=== PATIENT | male | born 1960 | race Caucasian/White ===

== ENCOUNTER 2017-12-06 10:18 | Inpatient (IN) | payer BC ==
[~2017-12-06] VITALS: Ht 167.6 cm; Wt 63.0 kg
[2017-12-06 10:21] VITALS: BP_SYST 155
[2017-12-06] MEDS ORDERED: MORPHINE 4 MG/ML INJ. SYRINGE IVP ONE ×2 (10:30→11:30)
[2017-12-06 10:45] LABS: BASOPHILS % (AUTO) 0.3 % (0.0-2.0); EOSINOPHILS % (AUTO) 0.2 % (0.0-4.0); HEMOGLOBIN 13.7 g/dL (14.0-18.0); LYMPHOCYTES % (AUTO) 7.3 % (20.5-51.5); MEAN CORPUSCULAR HEMOGLOBIN 32 pg (27-31); MEAN CORPUSCULAR HGB CONC 34 % (32-36); MEAN CORPUSCULAR VOLUME 96 fL (79.0-98.0); MONOCYTES # (AUTO) 0.5 K/uL (0.0-1.0); MONOCYTES % (AUTO) 3.8 % (1.7-9.3); NEUTROPHILS # (AUTO) 11.9 K/uL (1.8-7.7); NEUTROPHILS % (AUTO) 88.4 % (40.0-70.0); PLATELET COUNT (AUTO) 225 K/uL (130-430); RED BLOOD CELL COUNT(AUTO) 4.25 MIL/uL (4.2-6.2); RED CELL DISTRIBUTION WIDTH 11.3 % (9.0-15.0); WHITE BLOOD COUNT (AUTO) 13.4 K/uL (4.8-10.8)
[2017-12-06 10:53] LABS: CALCIUM 9.3 mg/dL (8.4-11.0); CREATININE 1.19 mg/dL (0.55-1.30); POTASSIUM 4.3 mmol/L (3.5-5.1)
[2017-12-06 10:56] LABS: INR 1.1 (0.80-1.20); PROTHROMBIN TIME 10.8 SECS (9.5-12.5)
[2017-12-06 10:58] LABS: TOTAL BILIRUBIN 0.6 mg/dL (0.0-1.0)
[2017-12-06] MEDS ORDERED: SIMV10TA2 PO (11:14)
[2017-12-06] MEDS ORDERED: IOHEXOL 0 ML IV ONE (11:38)
[2017-12-06] MEDS ORDERED: CLOPIDOGREL BISULFATE 75 MG TABLET PO ONE (11:45)
[2017-12-06] MEDS ORDERED: IOHEXOL 350 mgI/mL, 150 ML INFUS..BTL IV ONE (11:45)
[2017-12-06] MEDS ORDERED: CLOPIDOGREL BISULFATE 75 MG TABLET ONE (11:49)
[2017-12-06] MEDS ORDERED: ONDANSETRON HCL 4 MG/5 ML UDC PO ONE (12:15)
[2017-12-06] MEDS ORDERED: ONDANSETRON HCL 4 MG/2 ML VIAL IVP ONE (12:15)
[2017-12-06 12:34] VITALS: BP_SYST 148
[2017-12-06] MEDS ORDERED: METOPROLOL TARTRATE 25 MG TABLET PO SCH ×2 (14:15→21:00)
[2017-12-06] MEDS ORDERED: *LOVENOX 1MG/KG Q12H/PHARMACY XX ONE ×2 (14:15→14:30)
[2017-12-06] MEDS ORDERED: ACETAMINOPHEN 325 MG TABLET PO PRN (14:15)
[2017-12-06] MEDS ORDERED: MORPHINE 4 MG/ML INJ. SYRINGE IVP PRN ×2 (14:15)
[2017-12-06 14:35] LABS: CHOLESTEROL 201 mg/dL (<200); HDL CHOLESTEROL 66 mg/dL (>45); LDL CHOLESTEROL 126 mg/dL (<100); TRIGLYCERIDES 70 mg/dL (30-150)
[2017-12-06] MEDS ORDERED: METOPROLOL TARTRATE 25 MG TABLET PO ONE (14:45)
[2017-12-06] MEDS ORDERED: ENOXAPARIN SODIUM 60 MG/0.6 ML SYRINGE SUBCUT ONE (14:45)
[2017-12-06 16:02] VITALS: BP_SYST 147
[2017-12-06 16:21] VITALS: BP_SYST 111
[2017-12-06] MEDS ORDERED: ENOXAPARIN SODIUM 60 MG/0.6 ML SYRINGE SUBCUT SCH (21:00)
== END 2017-12-06 15:55 | disposition short-term general hospital (02) | DRG 282 ==
LOC: SED 10:18 → STU 11:58
PROVIDERS: ADMIT Internal Medicine Hospice and Palliative Medicine; ATTEND Internal Medicine Hospice and Palliative Medicine
DX: I21.4 Non-ST elevation (NSTEMI) myocardial infarction (principal); E11.9 Type 2 diabetes mellitus without complications; E78.5 Hyperlipidemia, unspecified; M54.9 Dorsalgia, unspecified; Z80.0 Family history of malignant neoplasm of digestive organs; Z82.49 Family history of ischemic heart disease and other diseases of the circulatory system
CPT/HCPCS: 36415; 71045; 71275; 80053; 80061; 83036; 84484; 85025; 85610-TC; 93005; 96374; 96375; 96376; 99285; J1650; J2270; J2405; Q9967